=== PATIENT | male | born 1935 | race Caucasian/White ===

== ENCOUNTER 2021-07-07 20:32 | Emergency (ER) | payer OTHER ==
[2021-07-07 21:19] LABS: Absolute Lymphocytes (CBC) 1.2 K/uL (0.7-4.9); Hematocrit 34.4 % (39.6-49.0); Lymphocytes % 19.5 % (15.3-44.8); MPV 7.3 fL (7.6-11.3); RBC Red Blood Cell Count 3.53 M/uL (4.33-5.43)
--- NOTE | 2021-07-07 21:24 | RAD REPORT ---
EXAM DESCRIPTION: RAD - Chest Single View - 07/07/2021 9:15 pm CLINICAL HISTORY: possible stroke Chest pain. COMPARISON: No comparisons FINDINGS: Portable technique limits examination quality. The lungs are grossly clear. The heart is normal in size. No displaced fractures. Sternotomy wires. IMPRESSION: No acute intrathoracic process suspected.
--- NOTE | 2021-07-07 21:24 | RAD REPORT ---
EXAM DESCRIPTION: CT - Ct Stroke Brain Wo Cont - 07/07/2021 9:13 pm CLINICAL HISTORY: Neuro deficit, acute, stroke suspected Headache, drowsiness, CVA symptomology COMPARISON: No comparisons TECHNIQUE: All CT scans are performed using dose optimization technique as appropriate and may inclu de automated exposure control or mA/KV adjustment according to patient size. FINDINGS: No intracranial hemorrhage, hydrocephalus or extra-axial fluid collection.Moderate general ized brain atrophy is present with mild periventricular and deep white matter chronic microvascular i schemic changes.No areas of brain edema or evidence of midline shift. The paranasal sinuses and mastoids are clear. The calvarium is intact. IMPRESSION: No acute intracranial abnormality.
[2021-07-07 21:28] LABS: Protime INR 1.13
[2021-07-07 21:49] LABS: Potassium 2.9 mmol/L (3.5-5.1)
[2021-07-07] MEDS ORDERED: KCL 20 MEQ/100 mL IVPB 100 ML IV ONE (22:03)
[2021-07-07] MEDS ORDERED: POTASSIUM 25 MEQ EFFERV TAB ONE (22:03)
[2021-07-07] MEDS ORDERED: NA CHLORIDE 0.9% 500 ML ONE (22:17)
[2021-07-07 23:50] LABS: Potassium 3.1 mmol/L (3.5-5.1)
--- NOTE | 2021-07-07 23:52 | ER ---
Nurse's Notes [facility] Name: Leroy Carty Age: 86 yrs Sex: Male : 1935 Arrival Date: 07/07/2021 Time: 20:37 Bed 6 Private MD: Diagnosis: Altered Sensation, Hypokalemia Presentation: 07/07 20:40 Chief complaint: Patient states: "I had a little bit of a problem a while a ago." tw5 Patient's son or daughter states: "His lip was tremoring. His brother is a doctor and told to come to the ER for cat scan because it might be a stroke.". Coronavirus screen: Vaccine status: Patient reports receiving the 2nd dose of the covid vaccine. J and J. Ebola Screen: Patient negative for fever greater than or equal to 101.5 degrees Fahrenheit, and additional compatible Ebola Virus Disease symptoms Patient denies exposure to infectious person. Patient denies travel to an Ebola-affected area in the 21 days before illness onset. No acute neurological deficit is noted. Initial Sepsis Screen: Does the patient meet any 2 criteria? No. Patient's initial sepsis screen is negative. Does the patient have a suspected source of infection? No. Patient's initial sepsis screen is negative. Risk Assessment: Do you want to hurt yourself or someone else? Patient reports no desire to harm self or others. Onset of symptoms was July 07, 2021 at 17:00. 20:40 Method Of Arrival: Wheelchair tw5 20:40 Acuity: ANUP 3 tw5 22:36 Pre-hospital glucose is not applicable to this patient. tw5 Triage Assessment: 20:44 The onset of the patients symptoms was July 07, 2021 at 17:00. General: Appears in no tw5 apparent distress. Behavior is calm, cooperative, appropriate for age. Pain: Denies pain. Neuro: Reports "I just have this twitching in my face.". Historical: - Allergies: 20:44 Ibuprofen; tw5 - Immunization history:: Flu vaccine is up to date. - Social history:: Smoking status: Smoking status: Patient reports the use of cigarette tobacco products, smokes one-half pack cigarettes per day. Screenin:30 Abuse screen: Denies threats or abuse. Nutritional screening: No deficits noted. tw5 Tuberculosis screening: No symptoms or risk factors identified. Fall Risk No fall in past 12 months (0 pts). Secondary diagnosis (15 points) dementia, IV access (20 points). Ambulatory Aid- None/Bed Rest/Nurse Assist (0 pts). Gait- Normal/Bed Rest/Wheelchair (0 pts) Mental Status- Oriented to own ability (0 pts). Total Pope Fall Scale indicates Low Risk Score (25-44 pts). Fall prevention measures have been instituted. Placed close to Nursing Station Family Present and informed to notify staff if they need to leave bedside As available Patient and Family Educated on Fall Prevention Program and strategies. Assessment: 22:30 VAN Scoring: Arm Drift: Patients demonstrates NO arm weakness. Patient is VAN Negative. tw5 Visual Disturbance: No visual disturbance noted. Aphasia: No aphasia noted. Neglect: No neglect noted. Patient has been NPO before screening. The patient is alert, and able to follow commands. The patient does not exhibit slurred or garbled speech. The patient is not exhibiting difficulty speaking. The patient does not exhibit difficulty understanding words. The patient is able to swallow own secretions with no drooling or need for suction. Patient tolerated one teaspoon of water. No drooling, immediate coughing, gurgling, or clearing of the throat was noted. The patient tolerated 90mL of water. No drooling, immediate coughing, gurgling, or clearing of the throat was noted. The patient passed the bedside swallow screening. Oral medications may be given as ordered. Contact Physician for further diet orders. Provider notified of bedside swallow screening results: Manolo Lu MD. T-PA (Activase) Screening: Contraindications: Rapidly improving condition or minor deficit: No. Vital Signs: 20:40 BP 136 / 101; Pulse 65; Resp 18; Temp 98.5(O); Pulse Ox 100% on R/A; Weight 77.11 kg; tw5 Height 6 ft. 0 in. (182.88 cm); Pain 0/10; 22:34 BP 129 / 84; Pulse 61; Resp 19; Pulse Ox 100% on R/A; tw5 20:40 Body Mass Index 23.06 (77.11 kg, 182.88 cm) tw5 NIH Stroke Scale Scores: 22:30 NIHSS Score: 0 tw5 ED Course: 20:37 Patient arrived in ED. kz 20:44 Triage completed. tw5 20:44 Arm band placed on right wrist. tw5 20:46 Manolo Lu MD is Attending Physician. kdr 21:10 Inserted saline lock: 20 gauge in right forearm, using aseptic technique. Blood oe collected. 21:15 CT Stroke Brain w/o Contrast In Process Unspecified. EDMS 21:16 Stroke CXR 1 View In Process Unspecified. EDMS 22:28 Monalisa Uribe is Primary Nurse. tw5 22:30 Patient has correct armband on for positive identification. Call light in reach. Side tw5 rails up X 1. Client placed on continuous cardiac and pulse oximetry monitoring. NIBP monitoring applied. 23:52 No provider procedures requiring assistance completed. IV discontinued, intact, tw5 bleeding controlled, No redness/swelling at site. Pressure dressing applied. Administered Medications: 22:25 Drug: Potassium Chloride 10 mEq Route: IV; Rate: calculated rate; Site: right tw5 antecubital; 22:29 Drug: Potassium Effervescent Tablet 50 mEq Route: PO; tw5 Medication: 22:30 VIS not applicable for this client. tw5 Outcome: 23:52 Discharge ordered by . kdr 23:52 Discharged to home via wheelchair, with family. tw5 23:52 Condition: stable 23:52 Discharge instructions given to patient, family, Instructed on discharge instructions, follow up and referral plans. Demonstrated understanding of instructions, follow-up care. 23:53 Patient left the ED. tw5 NIH Stroke Scale - NIH Stroke Score Date: 07/07/2021 Time: 22:30 Total Score = 0 1a. Level of Consciousness (LOC) - 0(Alert) 1b. Level of Consciousness (LOC) (Month \\T\\ Age) - 0(Both) 1c. LOC Commands (Open \\T\\ Closes Eyes/Automotive Parts Clerk) - 0(Both) 2. Best Gaze (Lateral Gaze Paresis) - 0(Normal) 3. Visual Field Loss - 0(No visual loss) 4. Facial Palsy - 0(Normal) 5a. Left Arm: Motor (10-second hold) - 0(No drift) 5b. Right Arm: Motor (10-second hold) - 0(No drift) 6a. Left Leg: Motor (5-second hold - always test supine) - 0(No drift) 6b. Right Leg: Motor (5-second hold - always test supine) - 0(No drift) 7. Limb Ataxia (finger/nose \\T\\ heel/bess - test with eyes open) - 0(Absent) 8. Sensory Loss (pinprick arms/legs/face) - 0(Normal) 9. Best Language: Aphasia (description/naming/reading) - 0(No aphasia) 10. Dysarthria (speech clarity - read or repeat words) - 0(Normal) 11. Extinction and Inattention (visual/tactile/auditory/spatial/personal) - 0(No abnormality) Initials: tw5 Signatures: Dispatcher [employer] EDManolo Miner MD MD kdr Espinosa, Orlando oe Wood, Tiffany tw5 Ilda Gilliland
--- NOTE | 2021-07-07 23:52 | EDPHYS ---
Physician Documentation [facility] Name: Leroy Carty Age: 86 yrs Sex: Male : 1935 Arrival Date: 07/07/2021 Time: 20:37 Bed 6 Private MD: ED Physician Manolo Lu HPI: 07/07 22:28 This 86 yrs old Male presents to ER via Wheelchair with complaints of S/S of Possible kdr Stroke. 22:28 The patient's problem is reported as The patient states that he has had intermittent kdr twitching and altered sensation to the right side of his face intermittently for the course of the day. He has not had anything like this before. Family advised him to come to the ED and be ruled out for possible stroke. Patient's also had some intermittent dizziness over the past few weeks. Has not changed in character or severity.. Severity of symptoms: At their worst the symptoms were mild in the emergency department the symptoms are unchanged. Patient's baseline: Neuro: alert and fully oriented, Motor: no deficits, Ambulation: walks without assistance, Speech: normal. The patient has not experienced similar symptoms in the past. The patient has not recently seen a physician. Historical: - Allergies: 20:44 Ibuprofen; tw5 - Immunization history:: Flu vaccine is up to date. - Social history:: Smoking status: Smoking status: Patient reports the use of cigarette tobacco products, smokes one-half pack cigarettes per day. ROS: 22:28 Constitutional: Negative for fever, chills, and weight loss, Eyes: Negative for injury, kdr pain, redness, and discharge, ENT: Negative for injury, pain, and discharge, Neck: Negative for injury, pain, and swelling, Cardiovascular: Negative for chest pain, palpitations, and edema, Respiratory: Negative for shortness of breath, cough, wheezing, and pleuritic chest pain, Abdomen/GI: Negative for abdominal pain, nausea, vomiting, diarrhea, and constipation, Back: Negative for injury and pain, : Negative for injury, bleeding, discharge, and swelling, MS/Extremity: Negative for injury and deformity, Skin: Negative for injury, rash, and discoloration, Neuro: Negative for headache, weakness, numbness, tingling, and seizure activity. Psych: Negative for depression, anxiety, suicide ideation, homicidal ideation, and hallucinations, Allergy/Immunology: Negative for hives, rash, and allergies, Endocrine: Negative for neck swelling, polydipsia, polyuria, polyphagia, and marked weight changes, Hematologic/Lymphatic: Negative for swollen nodes, abnormal bleeding, and unusual bruising. Exam: 22:28 Constitutional: This is a well developed, well nourished patient who is awake, alert, kdr and in no acute distress. Head/Face: Normocephalic, atraumatic. Eyes: Pupils equal round and reactive to light, extra-ocular motions intact. Lids and lashes normal. Conjunctiva and sclera are non-icteric and not injected. Cornea within normal limits. Periorbital areas with no swelling, redness, or edema. Neck: Trachea midline, no thyromegaly or masses palpated, and no cervical lymphadenopathy. Supple, full range of motion without nuchal rigidity, or vertebral point tenderness. No Meningismus. Chest/axilla: Normal chest wall appearance and motion. Nontender with no deformity. No lesions are appreciated. Cardiovascular: Regular rate and rhythm with a normal S1 and S2. No gallops, murmurs, or rubs. Normal PMI, no JVD. No pulse deficits. Respiratory: Lungs have equal breath sounds bilaterally, clear to auscultation and percussion. No rales, rhonchi or wheezes noted. No increased work of breathing, no retractions or nasal flaring. Abdomen/GI: Soft, non-tender, with normal bowel sounds. No distension or tympany. No guarding or rebound. No evidence of tenderness throughout. Back: No spinal tenderness. No costovertebral tenderness. Full range of motion. Skin: Warm, dry with normal turgor. Normal color with no rashes, no lesions, and no evidence of cellulitis. MS/ Extremity: Pulses equal, no cyanosis. Neurovascular intact. Full, normal range of motion. Neuro: Awake and alert, GCS 15, oriented to person, place, time, and situation. Cranial nerves II-XII grossly intact. Motor strength 5/5 in all extremities. Sensory grossly intact. Cerebellar exam normal. Normal gait. Psych: Awake, alert, with orientation to person, place and time. Behavior, mood, and affect are within normal limits. Vital Signs: 20:40 BP 136 / 101; Pulse 65; Resp 18; Temp 98.5(O); Pulse Ox 100% on R/A; Weight 77.11 kg; tw5 Height 6 ft. 0 in. (182.88 cm); Pain 0/10; 22:34 BP 129 / 84; Pulse 61; Resp 19; Pulse Ox 100% on R/A; tw5 20:40 Body Mass Index 23.06 (77.11 kg, 182.88 cm) tw5 NIH Stroke Scale Scores: 22:30 NIHSS Score: 0 tw5 MDM: 22:28 Data reviewed: vital signs, nurses notes, lab test result(s), radiologic studies. kdr Counseling: I had a detailed discussion with the patient and/or guardian regarding: the historical points, exam findings, and any diagnostic results supporting the discharge/admit diagnosis, lab results, radiology results, the need for outpatient follow up. 23:52 Patient medically screened. kdr 07/07 20:47 Order name: Basic Metabolic Panel; Complete Time: 22:27 kdr 07/07 20:47 Order name: CBC with Diff; Complete Time: 22:27 kdr 07/07 20:47 Order name: Protime (+inr); Complete Time: 22:27 kdr 07/07 20:47 Order name: Ptt, Activated; Complete Time: 22:27 kdr 07/07 21:16 Order name: Glucose, Ancillary Testing; Complete Time: 22:27 EDMS 07/07 23:03 Order name: Chem 7; Complete Time: 23:53 kdr 07/07 20:47 Order name: CT Stroke Brain w/o Contrast; Complete Time: 22:27 kdr 07/07 20:47 Order name: Stroke CXR 1 View; Complete Time: 22:27 kdr 07/07 20:47 Order name: EKG; Complete Time: 20:48 kdr 07/07 20:47 Order name: Accucheck; Complete Time: 21:34 kdr 07/07 20:47 Order name: Cardiac monitoring; Complete Time: 21:36 kdr 07/07 20:47 Order name: EKG - Nurse/Tech; Complete Time: 21:36 kdr 07/07 20:47 Order name: IV Saline Lock; Complete Time: 21:34 kdr 07/07 20:47 Order name: Labs collected and sent; Complete Time: 21:34 kdr 07/07 20:47 Order name: NPO; Complete Time: 22:29 kdr 07/07 20:47 Order name: O2 Per Protocol; Complete Time: 20:58 kdr 07/07 20:47 Order name: O2 Sat Monitoring; Complete Time: 20:58 kdr 07/07 20:47 Order name: Stroke Swallow Screen; Complete Time: 22:29 kdr Administered Medications: 22:25 Drug: Potassium Chloride 10 mEq Route: IV; Rate: calculated rate; Site: right tw5 antecubital; 22:29 Drug: Potassium Effervescent Tablet 50 mEq Route: PO; tw5 Disposition Summary: 07/07/21 23:52 Discharge Ordered Location: Home kdr Problem: new kdr Symptoms: have improved kdr Condition: Stable kdr Diagnosis - Altered Sensation, Hypokalemia kdr Followup: kdr - With: Private Physician - When: 2 - 3 days - Reason: If symptoms return, Further diagnostic work-up, Recheck today's complaints, Continuance of care, Re-evaluation by your physician Discharge Instructions: - Discharge Summary Sheet kdr - Hypokalemia kdr Forms: - Medication Reconciliation Form kdr - Thank You Letter kdr NIH Stroke Scale - NIH Stroke Score Date: 07/07/2021 Time: 22:30 Total Score = 0 1a. Level of Consciousness (LOC) - 0(Alert) 1b. Level of Consciousness (LOC) (Month \T\ Age) - 0(Both) 1c. LOC Commands (Open \T\ Closes Eyes/Counselor Marriage And Family) - 0(Both) 2. Best Gaze (Lateral Gaze Paresis) - 0(Normal) 3. Visual Field Loss - 0(No visual loss) 4. Facial Palsy - 0(Normal) 5a. Left Arm: Motor (10-second hold) - 0(No drift) 5b. Right Arm: Motor (10-second hold) - 0(No drift) 6a. Left Leg: Motor (5-second hold - always test supine) - 0(No drift) 6b. Right Leg: Motor (5-second hold - always test supine) - 0(No drift) 7. Limb Ataxia (finger/nose \T\ heel/bess - test with eyes open) - 0(Absent) 8. Sensory Loss (pinprick arms/legs/face) - 0(Normal) 9. Best Language: Aphasia (description/naming/reading) - 0(No aphasia) 10. Dysarthria (speech clarity - read or repeat words) - 0(Normal) 11. Extinction and Inattention (visual/tactile/auditory/spatial/personal) - 0(No abnormality) Initials: tw5 Signatures: Dispatcher [employer] Manolo Multani MD MD kdr Wood, Tiffany tw5
[2021-07-08 00:01] VITALS: TEMP 98.5; O2SAT 100
[2021-07-08 00:02] VITALS: BP 129/84
--- NOTE | 2021-07-08 07:52 | EKG ---
Test Date: 2021-07-07 Test Time: 21:17:32 Sound Designer: VISHNU MEASUREMENT RESULTS: Intervals: Rate: 65 AK: 220 QRSD: 116 QT: 400 QTc: 416 [place]: P: 87 AK: 220 QRS: -27 T: 257 INTERPRETIVE STATEMENTS: Sinus rhythm with 1st degree AV block Incomplete left bundle branch block Nonspecific ST and T wave abnormality Abnormal ECG No previous ECG available for comparison Electronically Signed On 07-08-21 07:51:52 CDT by Kelvin Contreras
== END 2021-07-07 23:53 | disposition home or self-care (01) ==
LOC: ER 20:32
DX: E87.6 Hypokalemia (principal); F17.210 Nicotine dependence, cigarettes, uncomplicated; Z88.6 Allergy status to analgesic agent
CPT/HCPCS: 93005; 85025; 80048 ×2; 36415; 85610; 82947; 85730; 70450; 71045; 96374; 99284; J3480; J7040